=== PATIENT | male | born 1955 | race Caucasian/White ===

== ENCOUNTER 2020-09-24 14:14 | Emergency (ER) | payer MEDICARE, OTHER ==
[~2020-09-24] VITALS: Ht 167.6 cm; Wt 82.3 kg
[2020-09-24] MEDS ORDERED: MORPHINE 4 MG/ML 1ML VIAL/SYRINGE (J2270) IV ONE (15:55)
[2020-09-24 16:22] LABS: BASO % 0.4 % (0.0-1.0); EOS % 0.1 % (0.0-3.0); HEMATOCRIT 42.1 % (42.0-52.0); HEMOGLOBIN 13.9 g/dl (13.5-17.5); LYMPH # 0.6 10^3/uL (1.5-5.0); LYMPH % 7.5 % (24.0-44.0); MEAN CORPUSCULAR HEMOGLOBIN 29.8 pg (27.0-33.0); MEAN CORPUSCULAR VOLUME 90.3 fl (80.0-96.0); MONO # 0.8 10^3/uL (0.0-0.8); NEUTROPHILS # 7.1 10^3/uL (1.5-8.5); NEUTROPHILS % 82.8 % (36.0-66.0); PLATELET COUNT, AUTOMATED 238 10^3/uL (150-450); RED BLOOD COUNT 4.66 10^6/uL (4.30-6.10); WHITE BLOOD COUNT 8.5 10^3/uL (4.0-10.0)
--- NOTE | 2020-09-24 16:34 | ER ---
ER CONSULTATION DATE: 09/24/2020 CONCLUSIONS: Acute urinary retention following recent transurethral resection of the prostate (TURP) with distal urethral stricture. RECOMMENDATIONS: 1. Ambrosio catheter was placed after dilation of distal urethral stricture with Nathanael filiform and followers. A 16-[place] Ambler-tip Ambrosio catheter placed in the bladder and left in place. 2. Followup with patient's regular urologist. Will leave Ambrosio catheter in place until then. DISCUSSION: Patient is a 65-year-old male who underwent TURP approximately a month ago. He presents to the emergency room today with the inability to void. Bladder ultrasound demonstrates 800 mL of urine in the bladder. Ambrosio catheter could not be placed. I was asked to see the patient in consultation. EXAM: Uncomfortable male patient in bed. PROCEDURE: The patient was placed in the supine position on a stretcher. His penis was prepped with Betadine. A Bard Nathanael filiform spiral-tip catheter was inserted into the bladder. The urethra was dilated with the followers to 18 [place], and a 16-[place] Ambler Ambrosio catheter was placed over the guidewire into the bladder. Return of a large volume of clear urine was obtained. The balloon was inflated and connected to dependent drainage. The patient was to be discharged home to followup with his regular urologist.
[2020-09-24 16:46] LABS: BLOOD UREA NITROGEN 14 MG/DL (7-18); CARBON DIOXIDE LEVEL 23 MEQ/L (21-32); CHLORIDE LEVEL 103 MEQ/L (98-107); CREATININE FOR GFR 1.02 MG/DL (0.70-1.30); GLOMERULAR FILTRATION RATE > 60.0 (>49); GLUCOSE, FASTING 91 MG/DL (70-100); POTASSIUM SERUM 4.2 MEQ/L (3.5-5.1); SODIUM LEVEL 136 MEQ/L (136-145)
[2020-09-24 17:38] VITALS: BP 119/63
== END 2020-09-24 17:40 | disposition home or self-care (01) ==
LOC: M ED 14:14
DX: R33.9 Retention of urine, unspecified (principal)
CPT/HCPCS: 51702; 80048; 81001; 85025; 87086; 96374; 99284; J2270